=== PATIENT | female | born 1960 ===

== ENCOUNTER 2020-10-28 12:57 | Inpatient (IN) | payer OTHER ==
[~2020-10-28] VITALS: Ht 157.5 cm; Wt 111.1 kg
[2020-10-28] MEDS ORDERED: Z GUARD REMEDY PASTE 57 GM TUBE TOP PRN (15:30)
[2020-10-28] MEDS ORDERED: BUPR-53 PO (15:57)
[2020-10-28] MEDS ORDERED: ASPI-869 PO (15:57)
[2020-10-28] MEDS ORDERED: OXYC10TA49 PO (15:57)
[2020-10-28] MEDS ORDERED: FAMO20TA8 PO (15:57)
[2020-10-28] MEDS ORDERED: NALO0.4V2 IV (15:57)
[2020-10-28] MEDS ORDERED: MAGN400C PO (15:57)
[2020-10-28] MEDS ORDERED: DOCU100C36 PO (15:57)
[2020-10-28] MEDS ORDERED: MORPHINE SULFATE INJ IV (15:57)
[2020-10-28 15:59] VITALS: BP 139/58
[2020-10-28] MEDS ORDERED: ACETAMINOPHEN 325 MG TABLET PO PRN (18:15)
--- NOTE | 2020-10-28 19:00 | NUR ---
Admitted this 59y/o female from [facility] with diagnosis of S/P Right Knee arthroplasty, transferred via gurney. Patient is alert, oriented x 4, not in any form of distress, on room air. She denies any pain or discomfort upon arrival. Patient oriented to staff, room and room amenities. Routine admission care done. Needs attended to promptly. Call light and frequently used items placed within patient's reach. Surgical incision site on the right knee, admission photo taken. Called Dr. Huitron informed regarding admission and MD ordered Tylenol 650mg PO PRN Q 6 hrs and OxyIR 10mg PO Q4hrs PRN. Received a call back from Dr. Murphy, notified MD about the admission and the need to reconcile medications. Per MD he will reconcile the medications. Patient complained of right knee pain and requested for Tylenol PRN. Will endorse accordingly to maintenance mechanic 2nd shift nurse.
[2020-10-28 20:18] VITALS: BP 118/55
[2020-10-28] MEDS: OXYCODONE HCL 5 MG TABLET PO PRN (21:33)
[2020-10-29 04:12] VITALS: BP 130/55
--- NOTE | 2020-10-29 05:15 | NUR ---
Pt slept throughout the night. Denies SOB or chest pain. Able to get up and ambulate with FWW and assist. Able to make needs known. Bed is locked and in lowest position, call light within reach. No other issues or concerns at this time, will endorse to day shift.
[2020-10-29 07:35] VITALS: BP 130/57
[2020-10-29] MEDS: buPROPion XL 150 MG TAB.SR.24H PO SCH (09:24)
[2020-10-29] MEDS: MAGNESIUM OXIDE 400 MG TABLET PO SCH (09:24)
[2020-10-29] MEDS: ASPIRIN EC 325 MG TABLET.DR PO SCH (09:24)
[2020-10-29] MEDS: FAMOTIDINE 20 MG TABLET PO SCH ×2 (09:24→16:41)
[2020-10-29] MEDS: DOCUSATE SODIUM 100 MG CAPSULE PO SCH ×2 (09:25→16:41)
[2020-10-29] MEDS: OXYCODONE HCL 5 MG TABLET PO PRN ×2 (09:31→15:19)
[2020-10-29 15:28] VITALS: BP 128/55
[2020-10-29] MEDS: OXYCODONE/APAP 5-325 MG TABLET PO PRN (20:15)
[2020-10-29 20:35] VITALS: BP 131/42
--- NOTE | 2020-10-29 22:39 | NUR ---
Received pt resting in bed. AAO x4. No acute distress noted. Pt ambulated in the hallway and safely back in bed. Medicated for pain. Right knee dressing changed, no s/s of infection. Safety measures maintained. Call light and personal items within reach. Will continue to monitor.
[2020-10-30] MEDS: OXYCODONE HCL 5 MG TABLET PO PRN ×3 (01:41→15:41)
[2020-10-30 05:11] VITALS: BP 130/58
[2020-10-30 08:00] VITALS: BP 145/72
[2020-10-30] MEDS: MAGNESIUM OXIDE 400 MG TABLET PO SCH (08:37)
[2020-10-30] MEDS: buPROPion XL 150 MG TAB.SR.24H PO SCH (08:37)
[2020-10-30] MEDS: ASPIRIN EC 325 MG TABLET.DR PO SCH (08:37)
[2020-10-30] MEDS: DOCUSATE SODIUM 100 MG CAPSULE PO SCH ×2 (08:37→17:25)
[2020-10-30] MEDS: FAMOTIDINE 20 MG TABLET PO SCH ×2 (08:38→17:25)
--- NOTE | 2020-10-30 09:35 | NUR ---
Patient in bed, alert and oriented x 4 , pleasant and cooperative upon assessment. All needs met promptly. Call light placed within reach. Went off the unit for therapy.
--- NOTE | 2020-10-30 09:38 | NUR ---
Patient went back to unit and patient decided to walk along the corridor with a walker. Explained to her that she just did her therapy and suggested to have a bed r4est for couple of mins but patient decided to walk providing frequent visual observation for safety.
[2020-10-30 16:35] VITALS: BP 147/67
[2020-10-30] MEDS: OXYCODONE/APAP 5-325 MG TABLET PO PRN (20:06)
[2020-10-30 20:26] VITALS: BP 98/65
--- NOTE | 2020-10-30 20:45 | NUR ---
Received pt walking in the hallway with walker. Safely back in bed. AAO x4. No acute distress noted. C/o moderate pain, PRN Percocet given as ordered. Safety measures maintained. Call light and personal items within reach. Will continue to monitor.
[2020-10-31 04:42] VITALS: BP 127/58
[2020-10-31 05:58] LABS: BASOPHILS # (AUTO) 0.1 K/uL (0.0-8.0); BASOPHILS % (AUTO) 0.6 % (0.0-2.0); EOSINOPHILS # (AUTO) 0.4 K/uL (0.0-0.7); EOSINOPHILS % (AUTO) 4.3 % (0.0-7.0); HEMATOCRIT 31.5 % (31.2-41.9); HEMOGLOBIN 10.4 g/dL (10.9-14.3); LYMPHOCYTES % (AUTO) 20.5 % (20.5-51.5); MEAN CORPUSCULAR HEMOGLOBIN 28.3 uug (24.7-32.8); MEAN CORPUSCULAR HGB CONC 33 g/dL (32.3-35.6); MONOCYTES # (AUTO) 0.7 K/uL (2.0-10.0); MONOCYTES % (AUTO) 7.4 % (0.0-11.0); NEUTROPHILS # (AUTO) 6.6 K/uL (1.8-8.9); NEUTROPHILS % (AUTO) 67.2 % (38.5-71.5); PLATELET COUNT (AUTO) 284 K/uL (179-408); RED BLOOD CELL COUNT(AUTO) 3.67 MIL/uL (3.63-4.92); WHITE BLOOD COUNT (AUTO) 9.8 K/uL (3.8-11.8)
[2020-10-31 06:16] LABS: CREATININE 0.9 mg/dL (0.6-1.3); MAGNESIUM 2.3 mg/dL (1.8-2.4)
[2020-10-31] MEDS: MAGNESIUM OXIDE 400 MG TABLET PO SCH (08:04)
[2020-10-31] MEDS: buPROPion XL 150 MG TAB.SR.24H PO SCH (08:04)
[2020-10-31] MEDS: DOCUSATE SODIUM 100 MG CAPSULE PO SCH ×2 (08:04→17:19)
[2020-10-31] MEDS: ASPIRIN EC 325 MG TABLET.DR PO SCH (08:04)
[2020-10-31] MEDS: FAMOTIDINE 20 MG TABLET PO SCH ×2 (08:04→17:19)
[2020-10-31] MEDS: OXYCODONE HCL 5 MG TABLET PO PRN ×4 (08:04→21:23)
--- NOTE | 2020-10-31 10:00 | NUR ---
Patient in bed , alert and oriented x 4, cooperative upon assessment. All due meds given as ordered. Went off the unit for her therapy and went back after an hour. Assisted back to bed and call light placed within reach.
[2020-10-31 16:51] VITALS: BP 115/64
--- NOTE | 2020-10-31 19:20 | NUR ---
Received pt in bed, awake and verbally responsive. Able to make needs known. Pt denies any pain or discomfort. No s/s of respiratory distress. Safety measures initiated, call light within reach, will continue to monitor.
[2020-10-31 20:15] VITALS: BP 138/62
[2020-11-01 04:15] VITALS: BP 109/62
--- NOTE | 2020-11-01 06:39 | NUR ---
Pt slept through the night. No signs of acute distress. Tolerated medications well. R knee with conner wrap, clean and dry. Safety measures in place, call light within reach. All needs attended to and met.
[2020-11-01] MEDS: OXYCODONE HCL 5 MG TABLET PO PRN ×3 (07:36→17:34)
[2020-11-01 08:00] VITALS: BP 139/53
[2020-11-01] MEDS: DOCUSATE SODIUM 100 MG CAPSULE PO SCH ×2 (09:26→17:13)
[2020-11-01] MEDS: MAGNESIUM OXIDE 400 MG TABLET PO SCH (09:26)
[2020-11-01] MEDS: buPROPion XL 150 MG TAB.SR.24H PO SCH (09:26)
[2020-11-01] MEDS: FAMOTIDINE 20 MG TABLET PO SCH ×2 (09:26→17:13)
[2020-11-01] MEDS: ASPIRIN EC 325 MG TABLET.DR PO SCH (09:26)
[2020-11-01 15:51] VITALS: BP 128/51
[2020-11-01 20:00] VITALS: BP 135/55
[2020-11-02 04:00] VITALS: BP 139/53
[2020-11-02 06:27] LABS: BASOPHILS # (AUTO) 0.1 K/uL (0.0-8.0); BASOPHILS % (AUTO) 0.6 % (0.0-2.0); EOSINOPHILS # (AUTO) 0.4 K/uL (0.0-0.7); EOSINOPHILS % (AUTO) 3.8 % (0.0-7.0); HEMATOCRIT 31.7 % (31.2-41.9); HEMOGLOBIN 10.5 g/dL (10.9-14.3); LYMPHOCYTES % (AUTO) 21.8 % (20.5-51.5); MEAN CORPUSCULAR HEMOGLOBIN 28.8 uug (24.7-32.8); MEAN CORPUSCULAR HGB CONC 33 g/dL (32.3-35.6); MEAN CORPUSCULAR VOLUME 86.8 fL (75.5-95.3); MONOCYTES # (AUTO) 0.6 K/uL (2.0-10.0); MONOCYTES % (AUTO) 6.8 % (0.0-11.0); NEUTROPHILS # (AUTO) 6.3 K/uL (1.8-8.9); PLATELET COUNT (AUTO) 295 K/uL (179-408); RED BLOOD CELL COUNT(AUTO) 3.66 MIL/uL (3.63-4.92); WHITE BLOOD COUNT (AUTO) 9.3 K/uL (3.8-11.8)
--- NOTE | 2020-11-02 06:32 | NUR ---
Patient is A&0 x4 breathing room air no signs of respiratory distress or pain. Rewrapped patients right knee arthroplasty dress during the evening and provided ice packs beside the knee to decrease swelling and pt asked for hot packs to place around knee for comfort. Bed in low position and call light with in reach.
[2020-11-02 06:33] LABS: POTASSIUM 3.9 mmol/L (3.5-5.1)
[2020-11-02] MEDS: OXYCODONE HCL 5 MG TABLET PO PRN ×4 (07:09→22:39)
--- NOTE | 2020-11-02 07:12 | NUR ---
Patient states she has pain level of 5 on scale of 0-10 and requested OxyIR as ordered. Patient asked for crackers with the medication.
[2020-11-02 07:56] VITALS: BP 142/58
[2020-11-02] MEDS: MAGNESIUM OXIDE 400 MG TABLET PO SCH (08:19)
[2020-11-02] MEDS: FAMOTIDINE 20 MG TABLET PO SCH ×2 (08:19→16:30)
[2020-11-02] MEDS: buPROPion XL 150 MG TAB.SR.24H PO SCH (08:19)
[2020-11-02] MEDS: DOCUSATE SODIUM 100 MG CAPSULE PO SCH ×2 (08:19→16:31)
[2020-11-02] MEDS: ASPIRIN EC 325 MG TABLET.DR PO SCH (08:21)
--- NOTE | 2020-11-02 13:27 | NUR ---
Pt is Out On Pass for follow up appt with candido Sepulveda. Dr. Huitron aware with order in place. Medical Records Secretary aware. Pt aware and willing, therapeutic pass signed. Pt arranged private transportation to and from appt. Per pt request, PRN Oxyir administered per order prior to appt. Pt in stable condition, no acute distress. Pt assisted safely into vehicle.
--- NOTE | 2020-11-02 14:45 | NUR ---
Pt returned from appt. with Dr. Ordaz. No acute distress, no SOB. Pt able to ambulate safely with FWW. [place] removed, steri strips in place, C/D/I. Call light and belongings in reach.
[2020-11-02 16:03] VITALS: BP_SYST 103; BP_SYST 134; BP_DIAS 49; BP_DIAS 55
--- NOTE | 2020-11-02 17:09 | NUR ---
Pt in no acute distress, all needs met at this time. Pt placed on CPM machine at 1905, pt aware no more than 2 hours and to use call light if any discomfort, will endorse to physiognomist nurse. Steri-strips in place on right knee, minimal drainage noted, photo taken for chart. Some swelling noted around right knee, ice packs provided at pt request. PRN Oxyir provided per order for pt report of right knee pain. Due medications given per order, no a/r noted. VSS. Call light and belongings within reach.
--- NOTE | 2020-11-02 19:30 | NUR ---
Received patient lying in bed. AAOx4. In no acute distress. Denies any SOB. Pain on right knee tolerable at this time per pt. Right knee with steri strips intact. On CPM machine to right knee and tolerating well. Needs assessed and attended to. Safety measure initiated and call herron within reached.
[2020-11-02 20:27] VITALS: BP 121/45
[2020-11-03 05:04] VITALS: BP 133/60
--- NOTE | 2020-11-03 06:18 | NUR ---
Slept well last night. Oxycodone PRN per order given for complain of right knee pain and effective. Cool compress also provided. Right knee incision site with steri strips intact, clean and dry. Needs attended to and met. Safety measure maintained and call herron within reached.
[2020-11-03 08:00] VITALS: BP 122/66
[2020-11-03] MEDS: DOCUSATE SODIUM 100 MG CAPSULE PO SCH ×2 (08:54→17:25)
[2020-11-03] MEDS: ASPIRIN EC 325 MG TABLET.DR PO SCH (08:55)
[2020-11-03] MEDS: OXYCODONE/APAP 5-325 MG TABLET PO PRN (08:55)
[2020-11-03] MEDS: FAMOTIDINE 20 MG TABLET PO SCH ×2 (08:56→17:25)
[2020-11-03] MEDS: buPROPion XL 150 MG TAB.SR.24H PO SCH (08:56)
[2020-11-03] MEDS: MAGNESIUM OXIDE 400 MG TABLET PO SCH (08:56)
[2020-11-03] MEDS: OXYCODONE HCL 5 MG TABLET PO PRN ×2 (12:51→17:26)
[2020-11-03 16:00] VITALS: BP 137/55
[2020-11-03 20:00] VITALS: BP 122/52
--- NOTE | 2020-11-03 21:30 | NUR ---
RECEIVED PATIENT IN BED, ON CPM MACHINE, TOLERATING WELL. RIGHT KNEE WITH STERI-STRIPS. ASSISTED PATIENT TO TAKE OFF CPM MACHINE. PATIENT VERBALIZED THAT SHE DOESN'T NEED PAIN MEDS AT THIS TIME AND WOULD CALL WHEN SHE NEEDS IT.
[2020-11-04 04:00] VITALS: BP 137/61
[2020-11-04] MEDS: OXYCODONE HCL 5 MG TABLET PO PRN ×2 (06:39→10:47)
--- NOTE | 2020-11-04 06:52 | NUR ---
PATIENT SLEPT WELL DURING THE NIGHT. PATIENT COMPLAINED OF 7/10 PAIN AT RIGHT KNEE AND REQUESTED FOR OXYCODONE ORDERED. ADMINISTERED REQUESTED. WILL ENDORSE TO AM RN ACCORDINGLY.
--- NOTE | 2020-11-04 07:30 | NUR ---
Received patient awake, alert, oriented x 4, in bed, not in any form of distress on room air. She denies any pain or discomfort at this time. Call light and frequently used items placed within patient's reach.
[2020-11-04 07:48] VITALS: BP 116/47
[2020-11-04] MEDS: ASPIRIN EC 325 MG TABLET.DR PO SCH (09:27)
[2020-11-04] MEDS: DOCUSATE SODIUM 100 MG CAPSULE PO SCH (09:27)
[2020-11-04] MEDS: buPROPion XL 150 MG TAB.SR.24H PO SCH (09:27)
[2020-11-04] MEDS: FAMOTIDINE 20 MG TABLET PO SCH (09:27)
[2020-11-04] MEDS: MAGNESIUM OXIDE 400 MG TABLET PO SCH (09:28)
--- NOTE | 2020-11-04 13:18 | NUR ---
Received a discharge to home with home health order from Dr. Good. Patient made aware and is agreeable.
--- NOTE | 2020-11-04 14:30 | NUR ---
Discharge instructions provided to the patient with verbalized understanding. Discharge papers signed by and given to the patient. Discharge photo taken. Patient remains alert, oriented x 4, not in any form of distress, on room air, ambulatory with walker. Right knee surgical incision well coaptated, dry, no signs or symptoms of infection with steri-strips on. Patient denies any pain or discomfort at this time. Assisted with her needs. All belongings well accounted for and brought home by patient including front wheel walker. Assisted patient safely to the lobby via wheelchair. Patient picked up by daughter True via private car.
== END 2020-11-04 14:30 | disposition home health service (06) | DRG 560 ==
PROVIDERS: ADMIT Physical Medicine & Rehabilitation Pain Medicine; ATTEND Physical Medicine & Rehabilitation Pain Medicine
DX: Z47.1 Aftercare following joint replacement surgery (principal); D68.59 Other primary thrombophilia; Z68.41 Body mass index [BMI] 40.0-44.9, adult; E46 Unspecified protein-calorie malnutrition; M17.11 Unilateral primary osteoarthritis, right knee; E66.01 Morbid (severe) obesity due to excess calories; F32.9 Major depressive disorder, single episode, unspecified; Z96.651 Presence of right artificial knee joint; Z90.711 Acquired absence of uterus with remaining cervical stump; M51.16 Intervertebral disc disorders with radiculopathy, lumbar region; Z88.8 Allergy status to other drugs, medicaments and biological substances
CPT/HCPCS: 36415; 83735; 85025; A4663